=== PATIENT | female | born 1990 | race Caucasian/White ===

== ENCOUNTER 2018-06-07 20:04 | Emergency (ER) | payer OTHER | END 2018-06-07 20:56 | disposition home or self-care (01) ==

== ENCOUNTER 2018-06-07 20:20 | Emergency (ER) | payer MEDICAID ==
--- NOTE | 2018-06-07 21:16 | EDPHY ---
H & P Source: Patient Exam Limitations: No limitations Time Seen by Provider: 06/07/18 21:14 HPI/ROS: HPI: This is a 27-year-old female who presents with Chief Complaint: Lump on L breast, currently 16wks preg Location: Left breast Quality: Soreness and lumps Duration: 3-5 days Signs and Symptoms: No bleeding, no radiation, no numbness, no weakness, no tingling, no incontinence, no decreased range of motion, no swelling, + pain, no fever, no skin color changes Timing: Gradual onset Severity: [id number] Context: Patient is currently 16 weeks presents with complaints of left breast soreness and lumps in the lateral portion over the last 3-5 days. She reports that she drinks approximately 1-2 cups of coffee daily. She denies any skin color changes including no warmth, no redness, no discharge. No breast cancer history in the family. She has regular care. Denies vaginal bleeding, vaginal discharge, abdominal pain. Modifying Factors: Tylenol Comment: ROS: A comprehensive 10 system review of systems is otherwise negative aside from elements mentioned in the history of present illness. MEDICAL/SURGICAL/SOCIAL HISTORY: Medical history: Generally healthy. Does not take any regular medications. Surgical history: Denies Social history: Current every day smoker. Drinks caffeine daily. CONSTITUTIONAL: Well-developed, well-nourished adult female, awake and alert, no obvious distress HEENT: Atraumatic and normocephalic, PERRL, EOMI. Nares patent; no rhinorrhea; no nasal mucosal edema. Tympanic membranes clear. Oropharynx clear, no exudate and moist pink mucosa. Airway patent. No lymphadenopathy. No meningismus. Cardiovascular: Normal S1/S2, regular rate, regular rhythm, without murmur rub or gallop. PULMONARY/CHEST: Symmetrical and nontender. Clear to auscultation bilaterally. Good air movement. No accessory muscle usage. Breast: Small cystic like changes seen throughout bilateral breast; no fluctuance; no erythema. No peau d' orange. No nipple discharge. No axillary lymphadenopathy. ABDOMEN: Soft, nondistended, nontender, no rebound, no guarding, no peritoneal signs, no masses or organomegaly. No CVAT. EXTREMITIES: 2/2 pulses, strength 5/5, no deformities, no clubbing, no cyanosis or edema. NEUROLOGICAL: no focal neuro deficits. GCS 15. SKIN: Warm and dry, no erythema. no rash. Good capillary refill. (Jessica Chavis) Constitutional: Initial Vital Signs Temperature (C) 36.8 C 06/07/18 20:20 Heart Rate 93 06/07/18 20:20 Respiratory Rate 16 06/07/18 20:20 Blood Pressure 138/60 H 06/07/18 20:20 O2 Sat (%) 96 06/07/18 20:20 O2 Delivery Mode Room Air Medical Decision Making ED Course/Re-evaluation: Vital signs reviewed and stable upon arrival. No fluctuance/warmth to indicate abscess Physical exam is consistent with fibrocystic changes. No ultrasound warranted at this time. Advised to decrease caffeine, Tylenol as needed for pain, warm compresses Patient has a follow-up appointment with OBGYN in 1 week. This patient was seen under the supervision of my secondary supervising physician. I evaluated care for this patient independently. Discussed this patient with Dr. Burks who did not see the patient. (Jessica Chavis) I did not see this patient while she was in the emergency department, however her care was discussed with the PA while the patient was in the department. I agree with treatment plan and management (Huy Burks) Differential Diagnosis: Differential Diagnosis: Differential diagnosis includes but is not limited to mastitis, Diana, abscess , clogged milk gland, fibrocystic changes, malignancy. (Jessica Chavis) Departure - Departure Disposition: Home, Routine, Self-Care Clinical Impression: Fibrocystic changes of left breast Condition: Good Instructions: Fibrocystic Breast Changes (ED) Additional Instructions: Take Tylenol 650 mg every 4 hours as needed for pain. Apply moist heat compresses for 30 minutes at a time; 2-3 times per day for the next 1-2 days. Avoid any caffeine as this can make the fibrocystic changes worse. Follow up with OBGYN in the next 1-2 weeks for repeat examination. Return at once for any worsening symptoms or concerns. Referrals: OTHER HEALTH CARE DC,. [[facility]] - As per Instructions
[2018-06-07 21:19] VITALS: BP 138/60
== END 2018-06-07 21:15 | disposition home or self-care (01) ==
LOC: MERGE 20:20
DX: O92.29 Other disorders of breast associated with pregnancy and the puerperium (principal); O99.331 Smoking (tobacco) complicating pregnancy, first trimester; F17.200 Nicotine dependence, unspecified, uncomplicated; Z3A.16 16 weeks gestation of pregnancy

== ENCOUNTER → 2018-07-13 | Outpatient (CLI) | payer MEDICAID | LOC: FIMAGING 09:30 | PROVIDERS: ATTEND Physician Assistant | DX: Z34.92 Encounter for supervision of normal pregnancy, unspecified, second trimester (principal); Z3A.21 21 weeks gestation of pregnancy ==